=== PATIENT | female | born 1965 | race Caucasian/White ===

== ENCOUNTER → 2024-07-13 06:16 | Day surgery (SDC) | payer OTHER, SELFPAY | LOC: GI 06:16 | PROVIDERS: ATTENDING PHYSICIAN Internal Medicine Gastroenterology; FAMILY PHYSICIAN Family Medicine | DX: K63.89 Other specified diseases of intestine (principal); K62.6 Ulcer of anus and rectum; K64.8 Other hemorrhoids; K29.50 Unspecified chronic gastritis without bleeding; K20.90 Esophagitis, unspecified without bleeding; K22.89 Other specified disease of esophagus; K31.89 Other diseases of stomach and duodenum; K44.9 Diaphragmatic hernia without obstruction or gangrene; Z15.09 Genetic susceptibility to other malignant neoplasm | CPT/HCPCS: 45380; 43239; 88305; 88341; 88342 ==

== ENCOUNTER → 2024-09-11 18:24 | Outpatient (REF) | payer OTHER, SELFPAY | LOC: WDC 18:24 | PROVIDERS: ATTENDING PHYSICIAN Family Medicine | DX: Z12.31 Encounter for screening mammogram for malignant neoplasm of breast (principal) | CPT/HCPCS: 77063; 77067 ==

== ENCOUNTER 2025-01-13 10:15 | Emergency (ER) | payer OTHER, SELFPAY ==
[2025-01-13 10:25] VITALS: BP 127/74
[2025-01-13 11:12] VITALS: BMI 28.3
--- NOTE | 2025-01-13 11:45 | ED.GENMED ---
History of Present Illness
General
Chief Complaint: Fall
Source: patient and spouse
Exam Limitations: none
Time Seen by Provider: 01/13/25 10:57
History of Present Illness
History of Present Illness:
59yoF with a history of hypertension and endometrial cancer in 2019 s/p hysterectomy presenting for evaluation after a fall around 10 AM this morning. Patient slipped on water in her laundry room while going down 1 step. She fell backwards and
struck the left lower back/hip area against a step. There was no head strike or loss of consciousness. Patient was able to get up after the fall. She is presenting with pain in her left hip and low back region. She has not taken anything
[id number] for pain. She is otherwise asymptomatic and denies any pleuritic pain, shortness of breath, abdominal pain, paresthesias, difficulty urinating.
Past History
Past History
ED Past Medical History: Other (Kidney stones) and Other (León syndrome)
ED Past Surgical History: Gynecological (Hysterectomy) and Other ([place] teeth, kidney stone retrieval, sebaceous cyst)
Social History
Tobacco: Non-smoker
Living: with family
Phy Exam
General Physical Exam
General Presentation: well appearing and no apparent distress
General age: appears stated age
General Skin: warm and dry
General Habitus: normal
General Mental: alert
ENT Exam
ENT Exam: normocephalic
Pulmonary Exam
Pulmonary Exam: lungs clear, no respiratory distress, no rales, chest non tender, no crackles and no rhonchi
Gastrointestinal Exam
Gastrointestinal Exam: non tender, soft and non distended
Neurological Exam
Neurological Exam: alert
Loren Coma Scale
Eye Opening: Spontaneous
Verbal Response: Oriented
Motor Response: Obeys Commands
GCS Total Score: 15
Musculoskeletal Exam
Musculoskeletal Exam: other (L hip and lower lumbar spine tender to touch. No deformity or skin changes noted. ROM of hip intact but elicits pain. 2+ DP pulse.)
Skin Exam
Skin Exam: normal color and warm/dry
Psychiatric Exam
Psychiatric Exam: normal mood/affect
Course
Orders/Labs/Results
Orders:
Orders
01/13/25 11:44
Oxycodone/Acetaminophen [Percocet 5/325] 1 tablet PO NOW STA
CR Lumbar Spine Comp Min 4 Vw* Urgent
Comment:
Reason For Exam: pain, fall
Hip, Left 2-3 Views [CR Hip - LT w/wo Pel 2-3 Vw*] Urgent
Comment:
Reason For Exam: pain, fall
Include a pelvis x-ray?: Yes
Vital Signs
Initial and Last Documented VS:
Initial Vital Signs
Temp Pulse Resp BP Pulse Ox
98.0 F 72 20 127/74 99
01/13/25 10:25 01/13/25 10:25 01/13/25 10:25 01/13/25 10:25 01/13/25 10:25
Last Documented Vital Signs
Temp Pulse Resp BP Pulse Ox
98.0 F 72 20 128/73 97
01/13/25 10:25 01/13/25 10:25 01/13/25 10:25 01/13/25 12:37 01/13/25 12:37
MDM/Problems Addressed
Differential Diagnosis Includes:
59yoF here with L hip pain and low back pain after a mechanical fall on a step. No deformity or skin changes on exam. ROM of L hip intact. LLE is neurovascularly intact. Differential diagnosis includes fracture, soft tissue injury, sprain
X-rays of the lumbar spine and hip obtained which are negative for fracture. Patient able to ambulate and bear weight on the left leg on reassessment. She is stable for discharge. Supportive care discussed. Advised follow-up with PCP. Patient
in agreement with plan and was discharged in stable condition.
*Critical Care Note
Total Time (30-74mins, 75-104mins- exclusive of procedures): Not Applicable
ED Attending Note
-
Portions of this chart may have been created with voice recognition software.� Occasional wrong word or��sound alike� substitutions may have occurred due to the inherent limitations of voice recognition software.
Discharge Plan
Departure
Patient Disposition: Home (Routine Discharge)
Date of Disposition: 01/13/25
Time of Disposition: 13:24
Patient with high blood pressure during this ER visit?: No
Discharge Problem:
Fall from slip, trip, or stumble, Acute pain of left hip
Instructions: Muscle, joint, and bone pain - Discharge instructions
Prescriptions:
No Action
No Meds [No Current Medications]
0
ondansetron 4 MG tablet,disintegrating
4 mg PO TIDPRN PRN (Reason: nausea) Qty: 7 0RF
ciprofloxacin HCl 500 mg Tablet
500 mg PO BID Qty: 14 0RF
oxycodone-acetaminophen [Percocet] 5-325 mg Tablet
1 tab PO Q6HPRN PRN (Reason: pain) Qty: 14 0RF
tamsulosin [Flomax] 0.4 mg Capsule
0.4 mg PO DAILY Qty: 30 0RF
diclofenac potassium 50 mg tablet
50 mg PO BID PRN (Reason: pain) Qty: 14 0RF
ondansetron 4 mg Tablet,Disintegrating
4 mg PO BIDPRN PRN (Reason: nausea/vomiting) Qty: 10 0RF
Referrals:
Irma Nichols MD [Family Provider] -
Activity Restrictions/Additional Instructions:
Apply ice to affected area. Take Tylenol and ibuprofen as needed for pain.
Please follow-up with your family doctor. Return to the ER with any new or worsening symptoms.
Interventions
Interventions:
*Risk Screen - Suicide Last Done: 01/13/25 10:26
*General Assessment Last Done: 01/13/25 10:26
*Neglect/Abuse Screening Last Done: 01/13/25 10:26
*ED- Fall Risk Assessment Last Done: 01/13/25 11:08
*ED COVID-19 Vaccine History Last Done: 01/13/25 11:08
*Nursing Disposition Last Done: 01/13/25 13:42
ED-Musculoskeletal Assessment Last Done: 01/13/25 11:08
ED- Neurological Assessment Last Done: 01/13/25 11:08
ED-Skin Assessment Last Done: 01/13/25 11:08
Discharge Date and Time
Discharge Date/Time: 01/13/25 13:35
Print Language: DIVEHI
[2025-01-13] MEDS: PERCOCET 5/325 1 TABLET PO (11:49)
[2025-01-13 12:37] VITALS: BP 128/73
== END 2025-01-13 13:35 | disposition home or self-care (01) ==
LOC: EMR 10:15
PROVIDERS: EMERGENCY PHYSICIAN Emergency Medicine; FAMILY PHYSICIAN Family Medicine
DX: S79.912A Unspecified injury of left hip, initial encounter (principal); S39.92XA Unspecified injury of lower back, initial encounter; M25.552 Pain in left hip; M54.50 Low back pain, unspecified; W10.9XXA Fall (on) (from) unspecified stairs and steps, initial encounter; I10 Essential (primary) hypertension; Z85.42 Personal history of malignant neoplasm of other parts of uterus; Z87.442 Personal history of urinary calculi
CPT/HCPCS: 99283; 72110; 73502

== ENCOUNTER 2025-01-17 12:08 | Emergency (ER) | payer OTHER, SELFPAY ==
[2025-01-17 13:14] VITALS: BP 142/89
[2025-01-17] MEDS: TORADOL 15 MG IV (14:27)
[2025-01-17] MEDS: DECADRON 10 MG IV (14:27)
[2025-01-17] MEDS: VALIUM INJECTION 5 MG IV (14:28)
--- NOTE | 2025-01-17 14:28 | ED.MUSCINJ ---
HPI-Injury
General
Chief Complaint: Musculo-Skeletal Complaint
Source: patient
Exam Limitations: none
Time Seen by Provider: 01/17/25 13:59
History of Present Illness-Injury
Initial Injury comments:
59-year-old female presents complaining of increased lower back and left pelvic pain after fall she sustained 5 days ago. She was seen here at that time x-rays of the lumbar spine and pelvis were taken which were negative. She was sent home and
ibuprofen. She was in the interim seen by her family doctor who put her on prednisone and a muscle relaxer without relief. She notes pain that radiates from her back down the left thigh laterally and has tingling into her left foot. She denies
any bowel or bladder dysfunction. No fever no perianal anesthesia. She was told she needed an MRI and can get an appointment till March 13. No other complaints at this time
Past History
Past History
ED Past Medical History: Other (Kidney stones) and Other (León syndrome)
ED Past Surgical History: Gynecological (Hysterectomy) and Other ([place] teeth, kidney stone retrieval, sebaceous cyst)
Social History
Tobacco: Non-smoker
Living: with family
Phy Exam
Physical Exam
Physical Exam:
General: Well-appearing but uncomfortable female no acute respiratory distress
HEENT: Normocephalic atraumatic
Musculoskeletal exam: Patient is tender over the lower aspect of the lumbar spine with overlying ecchymosis and tender to the left posterior pelvis in the area of the sacrum. Good range of motion to the hip.
Neurologic exam: Alert and oriented good sensation to the left leg. Good strength with left ankle plantar and dorsiflexion. Straight leg raise does reproduce some pain that radiates down the left thigh
Injury Course
Orders/Labs/Results
Orders:
Orders
01/17/25 14:18
CT Lumbar Spine W/o Iv Contras Urgent
Comment:
Reason For Exam: fall, back pain, recent xray
CT Pelvis W/o Iv Contrast Urgent
Comment:
Reason For Exam: fall, left sacral pain
01/17/25 14:20
Dexamethasone Sod Phosphate [Decadron] 10 mg IV NOW STA
Ketorolac [Toradol] 15 mg IV NOW STA
diazePAM [Valium Injection] 5 mg IV NOW STA
MDM/Problems Addressed
Differential Diagnosis Includes:
Increased pain to the lower back and pelvis after a fall. Consider occult fracture versus radiculopathy versus underlying hematoma
No emergent need for MRI at this time given lack. Renal anesthesia, bowel or bladder dysfunction fever etc.
CT of the lumbar spine and pelvis
*Critical Care Note
Total Time (30-74mins, 75-104mins- exclusive of procedures): Not Applicable
ED Attending Note
-
Portions of this chart may have been created with voice recognition software.� Occasional wrong word or��sound alike� substitutions may have occurred due to the inherent limitations of voice recognition software.
Discharge Plan
Departure
Patient Disposition: Home (Routine Discharge)
Date of Disposition: 01/17/25
Time of Disposition: 17:06
Patient with high blood pressure during this ER visit?: No
Discharge Problem:
Radiculopathy
Instructions: Radiculopathy of the neck and back (including sciatica)
Prescriptions:
New
gabapentin 300 mg capsule
300 mg PO BID Qty: 14 0RF
oxycodone-acetaminophen [Percocet] 5-325 mg tablet
1 tab PO Q6HPRN PRN (Reason: pain) Qty: 10 0RF
No Action
No Meds [No Current Medications]
0
ondansetron 4 MG tablet,disintegrating
4 mg PO TIDPRN PRN (Reason: nausea) Qty: 7 0RF
ciprofloxacin HCl 500 mg Tablet
500 mg PO BID Qty: 14 0RF
oxycodone-acetaminophen [Percocet] 5-325 mg Tablet
1 tab PO Q6HPRN PRN (Reason: pain) Qty: 14 0RF
tamsulosin [Flomax] 0.4 mg Capsule
0.4 mg PO DAILY Qty: 30 0RF
diclofenac potassium 50 mg tablet
50 mg PO BID PRN (Reason: pain) Qty: 14 0RF
ondansetron 4 mg Tablet,Disintegrating
4 mg PO BIDPRN PRN (Reason: nausea/vomiting) Qty: 10 0RF
Referrals:
Keron Hutchinson MD [Active] -
Irma Nichols MD [Family Provider] -
Activity Restrictions/Additional Instructions:
Use pain medicine as prescribed. Follow-up with back pain specialist. Return if needed otherwise
Interventions
Interventions:
*Risk Screen - Suicide Last Done: 01/17/25 13:14
*General Assessment Last Done: 01/17/25 13:14
*Neglect/Abuse Screening Last Done: 01/17/25 13:14
*ED- Fall Risk Assessment Last Done: 01/17/25 13:14
*ED COVID-19 Vaccine History Last Done: 01/17/25 13:14
ED-Musculoskeletal Assessment Last Done: 01/17/25 13:14
Discharge Date and Time
Print Language: [place]
[2025-01-17 15:34] VITALS: BP 133/74
[2025-01-17 15:35] VITALS: BMI 27.3
== END 2025-01-17 17:31 | disposition home or self-care (01) ==
LOC: EMR 12:08
PROVIDERS: EMERGENCY PHYSICIAN Student in an Organized Health Care Education/Training Program; FAMILY PHYSICIAN Family Medicine
DX: M54.16 Radiculopathy, lumbar region (principal); R10.2 Pelvic and perineal pain; Z87.442 Personal history of urinary calculi
CPT/HCPCS: 96374; 96375; 99284; 72131; 72192

== ENCOUNTER 2025-07-29 06:18 | Day surgery (SDC) | payer OTHER, SELFPAY | END 2025-07-29 08:34 | disposition home or self-care (01) | LOC: GI 06:18 | PROVIDERS: ATTENDING PHYSICIAN Internal Medicine Gastroenterology; FAMILY PHYSICIAN Family Medicine | DX: Z12.11 Encounter for screening for malignant neoplasm of colon (principal); K62.6 Ulcer of anus and rectum; K62.89 Other specified diseases of anus and rectum; K64.8 Other hemorrhoids; Z15.09 Genetic susceptibility to other malignant neoplasm; Z85.038 Personal history of other malignant neoplasm of large intestine | CPT/HCPCS: 45380; 88305 ==

== ENCOUNTER → 2025-09-12 18:20 | Outpatient (REF) | payer OTHER, SELFPAY | LOC: WDC 18:20 | PROVIDERS: ATTENDING PHYSICIAN Family Medicine | DX: Z12.31 Encounter for screening mammogram for malignant neoplasm of breast (principal) | CPT/HCPCS: 77063; 77067 ==